=== PATIENT | female | born 1995 | race Caucasian/White ===

== ENCOUNTER 2019-09-24 16:09 | Emergency (ER) | payer OTHER, SELFPAY ==
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
[2019-09-24 16:19] VITALS: BP 121/81; PULSE 100; RESP 20; TEMP 37.3; O2SAT 100
[2019-09-24 16:49] VITALS: BP 120/75; PULSE 81; RESP 16; TEMP 37; O2SAT 99
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
[2019-09-24 20:23] VITALS: BP 118/75; PULSE 78; RESP 16; O2SAT 100
== END 2019-09-24 20:23 | disposition home or self-care (01) ==
PROVIDERS: Emergency Provider Emergency Medicine
DX: S06.0X0A Concussion without loss of consciousness, initial encounter (principal); S61.220A Laceration with foreign body of right index finger without damage to nail, initial encounter; S16.1XXA Strain of muscle, fascia and tendon at neck level, initial encounter; V44.5XXA Car driver injured in collision with heavy transport vehicle or bus in traffic accident, initial encounter
CPT/HCPCS: 12001; 70450; 71046; 72125; 73130; 99284; L0140

== ENCOUNTER 2019-10-08 17:49 | Emergency (ER) | payer OTHER, SELFPAY ==
[2019-10-08 17:57] VITALS: BP 111/67; PULSE 81; RESP 16; TEMP 37; O2SAT 100
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
== END 2019-10-08 18:45 | disposition home or self-care (01) ==
PROVIDERS: Emergency Provider Nurse Practitioner
DX: S61.411D Laceration without foreign body of right hand, subsequent encounter (principal); V99.XXXD Unspecified transport accident, subsequent encounter
CPT/HCPCS: 99211; G0463

== ENCOUNTER 2022-08-23 11:00 | Outpatient (CLI) | payer OTHER, SELFPAY ==
[2022-08-23 11:54] LABS: Basophils Absolute Auto 0.1 K/mm3 (0.0-0.1); Basophils Percent Auto 0.8 % (0.2-1.2); Eosinophils Absolute Auto 0.1 K/mm3 (0-0.3); Eosinophils Percent Auto 1.1 % (0-4.4); Hematocrit 37.7 % (37.0-47.0); Hemoglobin 12.5 g/dL (12.0-15.0); Immature Granulocyte Absolute 0.01 K/mm3 (0.00-0.031); Immature Granulocyte Percent A 0.2 % (0-0.5); Lymphocytes Absolute Auto 2.57 K/mm3 (0.9-3.2); Lymphocytes Percent Auto 38.8 % (18.3-44.2); Mean Corpuscular HGB Conc 33.2 g/dl (32-36); Mean Corpuscular Volume 90.6 fl (80-100); Mean Platelet Volume 9.7 fl (7.4-10.4); Monocytes Absolute Auto 0.5 K/mm3 (0.1-0.6); Monocytes Percent Auto 7.7 % (2.6-8.5); Neutrophils Absolute Auto 3.4 K/mm3 (1.3-6.7); Neutrophils Percent Auto 51.4 % (45.5-73.1); Platelet Count Result 205 k/mm3 (150-375); Red Blood Count 4.16 M/mm3 (4.2-5.4); Red Cell Distribution Width 12.6 % (11.5-14.5); White Blood Count 6.6 K/mm3 (4.5-10.0)
[2022-08-23 12:08] LABS: Alanine Aminotransferase 22 U/L (6-35); Albumin Level 4.6 g/dL (3.5-5.1); Alkaline Phosphatase 60 U/L (38-126); Anion Gap 5 mmol/L (8-16); Aspartate Amino Transferase 29 U/L (14-36); Bilirubin,Total 0.7 mg/dL (0.2-1.3); Blood Urea Nitrogen 9 mg/dL (7-17); Calcium 8.9 mg/dL (8.4-10.2); Carbon Dioxide 30 mmol/L (22-30); Chloride 103 mmol/L (98-107); Cholesterol 160 mg/dL (0-200); Estimated Glomerular Filt Rate > 60; Glucose 101 mg/dL (65-110); HDL Direct 55 mg/dL; Potassium 3.9 mmol/L (3.4-5.0); Sodium 138 mmol/L (137-145); Triglycerides 61 mg/dL (<150)
[2022-08-23 12:20] LABS: LDL Cholesterol Direct 73 mg/dL
[2022-08-23 12:39] LABS: Thyroid Stimulating Hormone 0.498 uIU/mL (0.465-4.680)
[2022-08-23 12:43] LABS: Hemoglobin A1C 5.7 % (<5.7)
[2022-08-23 13:19] LABS: Vitamin D 25 Hydroxy 31.2 ng/mL
== END 2022-08-23 11:01 | disposition home or self-care (01) ==
LOC: ANHLAB 11:00
PROVIDERS: PCP Internal Medicine; Visit Provider Internal Medicine
DX: Z13.6 Encounter for screening for cardiovascular disorders (principal); Z13.1 Encounter for screening for diabetes mellitus; Z13.29 Encounter for screening for other suspected endocrine disorder; Z13.220 Encounter for screening for lipoid disorders; Z13.21 Encounter for screening for nutritional disorder
CPT/HCPCS: 36415; 80053; 80061; 82306; 83036; 84443; 85025

== ENCOUNTER 2022-11-25 11:56 | Emergency (ER) | payer OTHER, SELFPAY ==
[2022-11-25 12:10] VITALS: BP 120/78; PULSE 97; RESP 16; TEMP 37.3; O2SAT 100
--- NOTE | 2022-11-25 12:21 | ED.URI ---
HPI - URI/Sore Throat General Chief Complaint: Upper Respiratory Infection Stated Complaint: sore throat,cough Time Seen by Provider: 11/25/22 12:06 Source: patient Mode of arrival: ambulatory Limitations: no limitations History of Present Illness HPI Narrative: Patient presents today complaining of 4 day history of dry cough with a 3 day history of hoarse voice. Denies fever shortness of breath. No history of asthma. She has been taking Benadryl without relief. Related Data Home Medications Medication Instructions Recorded Confirmed etonogestrel 68 mg subdermal 1 implant subdermal ONCE 11/25/22 11/25/22 implant (Nexplanon) Allergies Allergy/AdvReac Type Severity Reaction Status Date / Time No Known Allergies Allergy Verified 11/25/22 12:10 Review of Systems Review of Systems: CONSTITUTIONAL: Denies body aches, fever, chills, or sweats. EYES: Denies visual changes, redness, or discharge. ENT: Denies rhinorrhea, congestion, sore throat, or otalgia.+hoarse voice CARDIOVASCULAR: Denies chest pain, palpitations, or edema. RESPIRATORY: Denies dyspnea.+cough GASTROINTESTINAL: Denies abdominal pain, nausea, vomiting, or diarrhea. GENITOURINARY: Denies dysuria or hematuria. SKIN: Denies rash, itching, or wounds. MUSCULOSKELETAL: Denies back pain, joint pain, or myalgia. NEUROLOGIC: Denies headache, numbness, tingling, or weakness. PSYCH: Denies depression or anxiety. [facility] Past Medical History Medical History Anxiety Surgical History Surgical History Status post removal of thyroid nodule Family History Family History Mother Anxiety Depression Social History Social History Smoking status: Never smoker Alcohol intake: never Substance use: never Substance use type: does not use Gender identity (if verbalized by the patient): Female Comments At time of signature, I have reviewed and agree with nursing past medical, surgical, social and family history unless otherwise noted. Please see nursing chart for further information. There is no relevant family history pertinent to the presenting complaint Exam Narrative: GENERAL: Well-appearing, well-nourished, and in no acute distress. HEAD: Normocephalic, atraumatic. EYES: EOMI. No redness or drainage. Conjunctivae normal. ENT: Mucous membranes pink and moist. Nares clear. No rhinorrhea. TMs normal bilaterally. Throat normal. Uvula midline. Voice hoarse. NECK: Normal AROM. Supple. No lymphadenopathy. CHEST: No respiratory distress. Clear to auscultation. HEART: Regular rate and rhythm. No murmur appreciated. Normal peripheral pulses. EXTREMITIES: Normal range of motion. No edema. SKIN: Warm, dry, no rash. Capillary refill normal. Normal skin turgor. NEURO: No focal deficits. Alert and oriented x3. Gait steady. PSYCH: Normal affect. No signs of depression or anxiety. Course Course Level of Care: Express Care Visit Vital Signs Vital signs: Vital Signs Temperature 99.2 F 11/25/22 12:10 Pulse Rate 97 11/25/22 12:10 Respiratory Rate 16 11/25/22 12:10 Blood Pressure 120/78 11/25/22 12:10 Pulse Oximetry 100 11/25/22 12:10 Temperature 99.2 F 11/25/22 12:10 Pulse Rate 97 11/25/22 12:10 Respiratory Rate 16 11/25/22 12:10 Blood Pressure 120/78 11/25/22 12:10 Pulse Oximetry 100 11/25/22 12:10 Reviewed MDM - URI/Sore Throat MDM Narrative Medical decision making narrative: Rapid strep negative. Culture pending. Will treat with steroids and tessalon. Anticipatory guidance given. Differential Diagnosis Differential diagnosis: Likely upper respiratory infection, sinusitis, viral infection, bronchitis, pharyngitis and other (Strep throat, laryngitis) Lab Data
== END 2022-11-25 12:35 | disposition home or self-care (01) ==
PROVIDERS: Emergency Provider Nurse Practitioner
DX: J40 Bronchitis, not specified as acute or chronic (principal); J04.0 Acute laryngitis
CPT/HCPCS: 87081; 87880; 99213; G0463

== ENCOUNTER 2023-01-16 10:06 | Outpatient (CLI) | payer OTHER, SELFPAY ==
--- NOTE | 2023-01-16 10:21 | ECG_ITS ---
Measurements Intervals [employer] Rate: 56 P: 43 SC: 155 QRS: 52 QRSD: 112 T: 43 QT: 419 QTc: 407 Interpretive Statements SINUS BRADYCARDIA INCOMPLETE RIGHT BUNDLE BRANCH BLOCK BORDERLINE ECG NO PREVIOUS ECG AVAILABLE FOR COMPARISON Electronically Signed On 01-16-2023 12:10:41 CDT by Dallas Ku D.O.
== END 2023-01-16 10:07 | disposition home or self-care (01) ==
LOC: ANHIMG 10:08
PROVIDERS: PCP Nurse Practitioner Family; Visit Provider Nurse Practitioner Family
DX: R55 Syncope and collapse (principal); I45.10 Unspecified right bundle-branch block
CPT/HCPCS: 93005

== ENCOUNTER 2023-01-23 12:23 | Outpatient (CLI) | payer OTHER, SELFPAY ==
[2023-01-23 12:55] LABS: Basophils Percent Auto 0.5 % (0.2-1.2); Eosinophils Absolute Auto 0.1 K/mm3 (0-0.3); Eosinophils Percent Auto 1.4 % (0-4.4); Hematocrit 39.1 % (37.0-47.0); Hemoglobin 12.5 g/dL (12.0-15.0); Immature Granulocyte Absolute 0.01 K/mm3 (0.00-0.031); Immature Granulocyte Percent A 0.2 % (0-0.5); Immature Platelet Fraction Pct 10.5 % (0.9-11.2); Lymphocytes Absolute Auto 2.53 K/mm3 (0.9-3.2); Lymphocytes Percent Auto 44.8 % (18.3-44.2); Mean Corpuscular Hemoglobin 29.6 pg (26-34); Mean Corpuscular Volume 92.4 fl (80-100); Monocytes Absolute Auto 0.4 K/mm3 (0.1-0.6); Monocytes Percent Auto 6.9 % (2.6-8.5); Neutrophils Absolute Auto 2.6 K/mm3 (1.3-6.7); Neutrophils Percent Auto 46.2 % (45.5-73.1); Platelet Count Result 123 k/mm3 (150-375); Red Blood Count 4.23 M/mm3 (4.2-5.4); Red Cell Distribution Width 13.3 % (11.5-14.5); White Blood Count 5.7 K/mm3 (4.5-10.0)
[2023-01-23 13:22] LABS: Burr Cells 1+ (NORMAL); Schistocytes None Seen (NORMAL)
[2023-01-23 13:23] LABS: Platelet Clumps Present; Platelet Estimate Adequate (Adequate)
[2023-01-23 13:58] LABS: Alanine Aminotransferase 35 U/L (6-35); Albumin Level 4.6 g/dL (3.5-5.1); Alkaline Phosphatase 49 U/L (38-126); Anion Gap 8 mmol/L (8-16); Aspartate Amino Transferase 30 U/L (14-36); Bilirubin,Total 0.9 mg/dL (0.2-1.3); Blood Urea Nitrogen 11 mg/dL (7-17); Calcium 8.7 mg/dL (8.4-10.2); Carbon Dioxide 24 mmol/L (22-30); Chloride 106 mmol/L (98-107); Estimated Glomerular Filt Rate > 60; Glucose 93 mg/dL (65-110); Potassium 4.1 mmol/L (3.4-5.0); Sodium 138 mmol/L (137-145)
== END 2023-01-23 12:24 | disposition home or self-care (01) ==
LOC: ANHLAB 12:25
PROVIDERS: PCP Nurse Practitioner Family; Visit Provider Nurse Practitioner Family
DX: R55 Syncope and collapse (principal)
CPT/HCPCS: 36415; 80053; 85025; 85055

== ENCOUNTER 2023-01-31 12:46 | Outpatient (CLI) | payer OTHER, SELFPAY ==
--- NOTE | 2023-02-07 16:07 | WPDHOLTEREM ---
Holter/Event Monitor Holter/Event Monitor Date of procedure: 01/31/23 Holter/Event Procedure: 48 Hr Holter Monitor Indications: Syncope Conclusion: 1. 48 hour holter monitor on 01/31/23. 2. Underlying rhythm is sinus rhythm. HR range 40-156 bpm; average HR 76 bpm. HR at 40 bpm was at 04:25; HR at 156 bpm was at 19:46. 3. No premature supraventricular complexes. No supraventricular tachycardia. 4. There are 3 premature ventricular complexes. No ventricular tachycardia. 5. No sinoatrial or atrioventricular blocks. No significant pauses greater than 2 seconds. 6. No symptoms available for correlation.
== END 2023-01-31 12:47 | disposition home or self-care (01) ==
LOC: ANHCARD 12:47
PROVIDERS: PCP Nurse Practitioner Family; Visit Provider Nurse Practitioner Family
DX: R55 Syncope and collapse (principal)
CPT/HCPCS: 93225; 93226

== ENCOUNTER 2023-09-10 10:26 | Outpatient (CLI) | payer OTHER, SELFPAY ==
--- NOTE | 2023-09-10 10:41 | EST_ITS ---
Patient Info Name: Kris Silva Age: 28 years : 1995 Gender: Female Ht: 67 in Wt: 145 lbs BSA: 1.77 m2 HR: 74 bpm BP: 106 / 66 mmHg Exam Date: 09/10/2023 10:52 AM Exam Location: Echo Lab Patient Status: Outpatient Admit Date: 09/10/2023 Staff Ordering Physician: Katlyn Marquez APRN Attending Provider: aKtlyn Marquez APRN Exercise Technologist: Steff Copeland JOHNNY Exercise Physician: Dallas Ku DO Exam Type: CA stress test treadmill Study Info A treadmill exercise stress test was performed. Summary 1. 1. Negative Grant exercise stress test for ischemic ST changes by ECG criteria. 2. 2. Good functional capacity, achieving 10 METs of workload. 3. 3. Appropriate HR response to exercise. 4. 4. Appropriate HR recovery at 1 minute post exercise. 5. 5. No imaging with stress testing. 6. 6. Patient informed of the above results. Protocol: Grant Stress ECG Details Stage: REST Duration (min): 0 min : 56 sec Speed (mph): 0.0 Grade (%): 0 HR (bpm): 80 SBP (mmHg): 106 DBP (mmHg): 66 METS: --- Stage: REST Duration (min): 5 min : 4 sec Speed (mph): 0.0 Grade (%): 0 HR (bpm): 83 SBP (mmHg): 106 DBP (mmHg): 66 METS: --- Stage: STAGE 1 Duration (min): 1 min : 0 sec Speed (mph): 1.7 Grade (%): 10 HR (bpm): 119 SBP (mmHg): 106 DBP (mmHg): 66 METS: --- Stage: STAGE 1 Duration (min): 2 min : 0 sec Speed (mph): 1.7 Grade (%): 10 HR (bpm): 124 SBP (mmHg): 106 DBP (mmHg): 66 METS: --- Stage: STAGE 1 Duration (min): 3 min : 0 sec Speed (mph): 1.7 Grade (%): 10 HR (bpm): 121 SBP (mmHg): 117 DBP (mmHg): 66 METS: --- Stage: STAGE 2 Duration (min): 1 min : 0 sec Speed (mph): 2.5 Grade (%): 12 HR (bpm): 133 SBP (mmHg): 117 DBP (mmHg): 66 METS: --- Stage: STAGE 2 Duration (min): 2 min : 0 sec Speed (mph): 2.5 Grade (%): 12 HR (bpm): 145 SBP (mmHg): 121 DBP (mmHg): 62 METS: --- Stage: STAGE 2 Duration (min): 3 min : 0 sec Speed (mph): 2.5 Grade (%): 12 HR (bpm): 148 SBP (mmHg): 121 DBP (mmHg): 62 METS: --- Stage: STAGE 3 Duration (min): 1 min : 0 sec Speed (mph): 3.4 Grade (%): 14 HR (bpm): 158 SBP (mmHg): 165 DBP (mmHg): 67 METS: --- Stage: STAGE 3 Duration (min): 2 min : 0 sec Speed (mph): 3.4 Grade (%): 14 HR (bpm): 163 SBP (mmHg): 165 DBP (mmHg): 67 METS: --- Stage: STAGE 3 Duration (min): 3 min : 0 sec Speed (mph): 3.4 Grade (%): 14 HR (bpm): 166 SBP (mmHg): 169 DBP (mmHg): 62 METS: --- Stage: RECOVERY Duration (min): 0 min : 59 sec Speed (mph): 0.0 Grade (%): 0 HR (bpm): 132 SBP (mmHg): 169 DBP (mmHg): 62 METS: --- Stage: RECOVERY Duration (min): 1 min : 59 sec Speed (mph): 0.0 Grade (%): 0 HR (bpm): 115 SBP (mmHg): 169 DBP (mmHg): 62 METS: --- Stage: RECOVERY
== END 2023-09-10 10:27 | disposition home or self-care (01) ==
LOC: ANHCARD 10:27
PROVIDERS: PCP Nurse Practitioner Family; Visit Provider Nurse Practitioner Family
DX: R07.9 Chest pain, unspecified (principal)
CPT/HCPCS: 93017

== ENCOUNTER 2025-01-13 20:18 | Emergency (ER) | payer OTHER, SELFPAY ==
--- NOTE | ~2025-01-13 | XR_ITS ---
XR hand LT min 3V Ordering provider: Lui Spence MD History: . left thumb injury/dog bites . Comparison: None. FINDINGS: BONES: No acute fracture or dislocation. JOINT SPACES: Well maintained. SOFT TISSUES: Unremarkable. IMPRESSION: No acute osseous abnormality left hand. Reviewed, dictated and finalized at location A.
--- OUTSIDE RECORDS SUMMARY | 2025-01-13 20:20 | XMS_ITS | Clinical Summary ---
Author Organization [facility] Care Team Providers Care Automotive Services Manager Name Role Phone Unavailable Primary Care Provider Unavailabl e Social History Tobacco Use Types Packs/Day Years Used Date Smoking Tobacco: Never Assessed Comments Unknown Sex and Gender Information Value Date Recorded Sex Assigned at Not on file Legal Sex Female 8:09 AM CDT Gender Identity Not on file Sexual Orientation Not on file Plan of Treatment Health Maintenance Due Date Last Done Comments Hepatitis C Virus (HCV) Screening 1995 TdaP Immunization 1995 Human Papillomavirus (HPV) Immunization (1 - 3-dose series) 2012 Hepatitis B Immunization (1 of 3 - 19+ 3-dose series) 2016 Pap Smear 2018 Influenza Immunization (#1) 2024 SARS-COV-2 Immunization ( season) 2024 Respiratory Syncytial Virus (RSV) Immunization (Adult) (1 - 1-dose 75+ series) 2072 Meningococcal Immunization (ACWY) Aged Out No longer eligible based on patient's age to complete this topic Pneumococcal Immunization Combined Aged Out No longer eligible based on patient's age to complete this topic Rotavirus Immunization Aged Out No lo nger eligible based on patient's age to complete this topic
[2025-01-13 20:23] VITALS: BP 113/75; PULSE 88; RESP 18; TEMP 37.2; O2SAT 100
--- NOTE | 2025-01-13 20:31 | PC.NURSE ---
Pt presents to ED due to dog bite to (L) thumb yesterday, now feeling numbness to finger going up arm.
--- NOTE | 2025-01-13 20:36 | ED.ANIMALBIT ---
HPI - Animal Bite General Chief Complaint: Animal Bite Stated Complaint: dog bit left thumb-hand numbness Time Seen by Provider: 01/13/25 20:27 History of Present Illness HPI narrative: 29-year-old otherwise healthy female presenting to the emergency department after a dog bit her left thumb. This occurred about 1:00 p.m yesterday. Patient states that it was her own domesticated dog was up-to-date on vaccinations and she was trying to break up a fight between other dog. She got bit several times on her left thumb. Has been trying some salve cream on top of it but knows that she was having some paresthesias in her thumb as well as some minor swelling so she came to the ER for evaluation. No recent antibiotics. She is not sure for tetanus is up-to-date. Able to range the thumb but having some pain and subjective pins and needle sensations in her dorsal aspect left thumb. No bleeding or significant lacerations noted. Dog was a small breed max. Related Data Home Medications ?Medication ?Instructions ?Recorded ?Confirmed ?Last Taken ?Type etonogestrel 68 mg subdermal 1 implant subdermal ONCE 11/25/22 08/08/23 Unknown History implant (Nexplanon) valacyclovir 500 mg tablet 500 mg PO DAILY PRN 08/08/23 08/08/23 Unknown History Allergies Allergy/AdvReac Type Severity Reaction Status Date / Time No Known Allergies Allergy Verified 01/13/25 20:19 Review of Systems Review of Systems: As reviewed above in HPI [facility] Past Medical History Medical History HSV (herpes simplex virus) infection Near syncope Anxiety with depression Anxiety Surgical History Surgical History Status post removal of thyroid nodule Family History Family History Mother Anxiety Depression Social History Social History Smoking status: Never smoker Alcohol intake: never Substance use: never Substance use type: does not use Lack of Transportation: No Lack of Food: Never True Current Housing: I Have Housing Concerned About Future Housing: No Difficulty Paying Gas/Electric Bills: No Difficulty Paying for Meds: No Currently Unemployed: No Education: High School Diploma/GED Difficulty w/ Childcare or Family Care: No Gender identity (if verbalized by the patient): Female Exam Narrative: GENERAL: [Well-appearing, well-nourished, and in no acute distress.] HEAD: [Normocephalic, atraumatic.] EYES: [PERRLA and EOMI.] ENT: Nares clear, no rhinorrhea or epistaxis. Mucous membranes moist. NECK: Supple. CHEST: [Clear to auscultation. No respiratory distress.] HEART: [Regular rate and rhythm]. No murmur heard. [Normal peripheral pulses.] ABDOMEN: [Soft, nondistended], [nontender], [No rigidity or guarding] EXTREMITIES: Numerous small punctate bites in left thumb around the sides around the nail, no nail bed injury. Good range of motion at the interphalangeal joint and metacarpophalangeal joint. No bleeding. No significant lacerations. Able to oppose each digit and make a thumbs up and okay sign. Good range of motion of the wrist. No appreciable swelling. No circumferential swelling, no tenderness with passive flexion or extension, no tenderness with percussion of the flexor surface. SKIN: Warm, dry, no rash. NEURO: [No focal deficits]. Alert and oriented [x3.] PSYCH: [Normal mood and affect.] Course Vital Signs Vital signs: Vital Signs Temperature 37.2 C 01/13/25 20:23 Pulse Rate 88 01/13/25 20:23 Respiratory Rate 18 01/13/25 20:23 Blood Pressure 113/75 01/13/25 20:23 Pulse Oximetry 100 01/13/25 20:23 Temperature 37.2 C 01/13/25 20:23 Pulse Rate 88 01/13/25 20:23 Respiratory Rate 18 01/13/25 20:23 Blood Pressure 113/75 01/13/25 20:23 Pulse Oximetry 100 01/13/25 20:23 MDM - Animal Bite MDM Narrative Medical decision making narrative: 29-year-old female presenting after a dog bit her left thumb at about 1:00 p.m. yesterday. Dog was domesticated and up-to-date on vaccinations and rabies. Numerous small punctate bites in left thumb around the sides around the nail, no nail bed injury. Good range of motion at the interphalangeal joint and metacarpophalangeal joint. No bleeding. No significant lacerations. Able to oppose each digit and make a thumbs up and okay sign. Good range of motion of the wrist. No appreciable swelling. No circumferential swelling, no tenderness with passive flexion or extension, no tenderness with percussion of the flexor surface. Subjective paresthesias at the palmar surface left thumb near the wounds. Patient's tetanus will be updated here and she was given Augmentin for her wounds. No lacerations requiring any suture at this time. X-rays were obtained to rule out any osseous abnormality or retained foreign body. Patient has no signs or symptoms of any suspicious infectious process at this time but with the dog bite injury she will be given very strict return precautions, antibiotic prescription, and signs to watch out for and she verbalized understanding. Patient's and x-rays were unremarkable for any acute osseous process or retained foreign body she will be sent home with a prescription for Augmentin. Patient given return precautions and safely discharged. Medical Records Attestation: I reviewed the patient's medical records. Imaging Data Attestation: I personally reviewed and interpreted this imaging study as follows: My impression: No retained foreign body or acute osseous process Radiologist's impression: Impressions Hand X-Ray 01/13/25 21:30 IMPRESSION: No acute osseous abnormality left hand. Discharge Plan Discharge Clinical Impression: Dog bite of left thumb Patient Disposition: Home Condition: Stable Instructions: Antibiotic Form, Animal Bite (ED) Additional Instructions: Your x-rays were negative for any abnormality. We will send you home with a course of Augmentin which will treat any infection from the dog bite. If you notice any worsening swelling or pain, purulent drainage, inability to move the thumb, fevers, chills or any other concerning symptoms please return to the ER for evaluation otherwise follow-up with regular doctor outpatient. You can take Tylenol and ibuprofen for any aches or pains in addition to the prescribed antibiotic. Patient Language: Hungarian Prescriptions: New amoxicillin-pot clavulanate 875-125 mg tablet 1 tablet PO Q12H 7 Days Qty: 14 0RF No Action Nexplanon 68 mg Implant 1 implant SUBDERMAL ONCE Rx Instructions: as a single dose hydroxyzine HCl 25 mg tablet 50 mg PO TID PRN (Reason: anxiety) Qty: 90 0RF Rx Instructions: 1-2 tablets as needed for an anxiety valacyclovir 500 mg tablet 500 mg PO DAILY PRN azithromycin 250 mg tablet See Rx Instructions PO .COMPLEX Qty: 6 0RF Rx Instructions: For 250 mg dose pack: take 500 mg today (day 1), then 250 mg for 4 days (days 2-5) PO Mucinex DM 30-600 mg tablet extended release 12 hr See Rx Instructions PO Q12H PRN (Reason: cough) Qty: 30 0RF Rx Instructions: 1-2 tablest orally every 12 hours PRN; prednisone 20 mg tablet 40 mg PO DAILY Qty: 10 0RF Follow-up/Referrals: Katlyn Marquez APRN [Primary Care Provider] - Time of Disposition: 21:34
--- NOTE | 2025-01-13 20:41 | PC.NURSE ---
Pt taken to imaging in W/C
[2025-01-13] MEDS: TETANUS,DIPHTHERIA,AC PERTUSSIS ADULT (0.5 ML) BOOSTRIX IM (20:45)
[2025-01-13] MEDS: AMOXICILLIN/CLAVULANATE K 875-125 MG TAB 1 TABLET PO (20:45)
--- OUTSIDE RECORDS SUMMARY | 2025-01-13 20:58 | XMS_ITS | Clinical Summary ---
Author Organization [facility] Care Team Providers Care Propellant Charge Zone Assembler Name Role Phone Unavailable Primary Care Provider [...]
--- NOTE | 2025-01-13 21:47 | PC.NURSE ---
L thumb irrigated, abx ointment applied and wrapped.
== END 2025-01-13 21:52 | disposition home or self-care (01) ==
PROVIDERS: Emergency Provider Student in an Organized Health Care Education/Training Program; PCP Nurse Practitioner Family
DX: S61.052A Open bite of left thumb without damage to nail, initial encounter (principal); Z23 Encounter for immunization; F41.8 Other specified anxiety disorders; W54.0XXA Bitten by dog, initial encounter
CPT/HCPCS: 73130; 90471; 90715; 99283; A9270

== ENCOUNTER 2025-04-21 00:53 | Day surgery (SDC) | payer OTHER, SELFPAY ==
[2025-04-16 13:56] VITALS: BMI 19.0
--- NOTE | 2025-04-16 14:03 | PC.NURSE ---
Report to the Outpatient Waiting Room, entrance under the green pavilion located off [facility], at time _1000_ on date _04/21/25_. Planned Procedure Time: _1200_.? Time changes happen often and if your time is changed the preop area will call you the afternoon before. - You and your visitor will be asked to self-screen and do not enter if you have any COVID symptoms. Please call surgeon if you need to reschedule. - A mask is optional within the hospital at this time. Patients may have clear liquids (water, carbonated beverages, clear teas, apple juice) until 3 hours prior to surgery with a maximum of 20 ounces. - No food from midnight until time of surgery and no smoking, or chewing tobacco (or any form of nicotine). No chewing gum, candy or mints. - Infants may have breast milk until 4 hours before surgery, formula 6 hours prior to surgery. - Children will be allowed to drink immediately following surgery.? If applicable, please bring a bottle or sippy cup to assist with drinking. Juice, water, soda, and popsicles are readily available.? For infants on formula, please bring formula the day of surgery.? Pacifiers are allowed. Take only the following medications with a SIP of water on the morning of surgery: ____HYDROXIZINE DO NOT STOP ANY OF YOUR OTHER PRESCRIPTION MEDICATIONS PRIOR TO SURGERY EXCEPT THE FOLLOWING Hold all vitamins and supplements for 3 days per anesthesiologist. Medications to discontinue per physician Date to take last dose Please no make-up, nail portuguese, hairspray, perfume, deodorant, or body powder the day of surgery.? No jewelry (including any body piercings) or valuables the day of surgery, leave them at home.? Please take a shower or bath the night before, or the morning of, surgery with an antibacterial soap.? Wear comfortable, loose fitting clothing.? Children are encouraged to wear pajamas. - Jewelry must be removed prior to entering the operating room.? Rings and piercings that are not removed may be cut off. - The hospital will not accept responsibility for valuables.? - Please leave all valuables, including medications, at home the day of surgery. If you are going home after surgery, a licensed driver license examiner must drive you home.? - NO public transportation without another adult if you receive anesthesia. - We recommend that an adult stay with you for 24 hours following discharge. - We also recommend that you do not drive, make important decision, drink alcoholic beverages, or take any drugs that were not prescribed by your health care provider for at least 24 hours after your discharge time. For Pediatric surgeries, we recommend two adults accompany the child home. Follow any additional instructions given to you from your surgeon. Telephone instructions given to PATIENT__and asked if any additional questions and then verbalized understanding. Patient advised to call surgeon office or pre surgery nurse liaison [phone] if any additional questions.
[2025-04-21] VITALS (8 sets, daily range): BP systolic 84–105; BP diastolic 47–64; PULSE 41–74; RESP 10–16; TEMP 36–36.8; O2SAT 99–100
--- OUTSIDE RECORDS SUMMARY | 2025-04-21 00:56 | XMS_ITS | Clinical Summary ---
Author Organization [facility] Care Team Providers Care Student Support Counselor Name Role Phone Unavailable Primary Care Provider [...] Virus (HCV) Screening 1997 TdaP Immunization 1997 Hepatitis B Immunization (1 of 3 - 19+ 3-dose series) 2016 SARS-COV-2 Immunization ( - 2023- season) 2024 Human Papillomavirus (HPV) Immunization (1 - 3-dose SCDM series) 2024 Influenza Immunization (#1) 2025 Respiratory Syncytial Virus (RSV) Immunization (Adult) (1 [...]
--- NOTE | 2025-04-21 08:58 | PM.IMHP ---
H&P: HPI History of Present Illness Date/Time: 04/21/25 08:58 Chief Complaint: Sterilization Narrative: 29 y/o who desires permanent sterilization. She has been using Nexplanon. She does not desire future childbearing. Review of Systems Review of Systems: All systems reviewed & are unremarkable except as noted in HPI and below PMFSH Past Medical History Medical History HSV (herpes simplex virus) infection Near syncope Anxiety with depression Anxiety Surgical History Surgical History Status post removal of thyroid nodule Family History Family History Mother Anxiety Depression Social History Social History Smoking status: Never smoker Alcohol intake: never Substance use: never Substance use type: does not use Lack of Transportation: No Lack of Food: Never True Current Housing: I Have Housing Concerned About Future Housing: No Difficulty Paying Gas/Electric Bills: No Difficulty Paying for Meds: No Currently Unemployed: No Education: High School Diploma/GED Difficulty w/ Childcare or Family Care: No Gender identity (if verbalized by the patient): Female Meds Home Medications and Allergies Home Medications ?Medication ?Instructions ?Recorded ?Confirmed ?Type etonogestrel 68 mg subdermal 1 implant subdermal ONCE 11/25/22 04/16/25 History implant (Nexplanon) hydroxyzine HCl 25 mg tablet 50 mg (2 x 25 mg) PO TID PRN 05/01/23 04/16/25 Rx anxiety #90 tabs valacyclovir 500 mg tablet 500 mg PO DAILY PRN LESIONS 04/16/25 04/16/25 History OUTBREAK Allergies Allergy/AdvReac Type Severity Reaction Status Date / Time No Known Allergies Allergy Verified 04/16/25 13:54 Exam Const: Orientation/consciousness: patient oriented x3 Other: Well-developed, well-nourished female in no acute distress. Neck: Thyroid: thyroid normal Lymphatic: no lymphadenopathy noted (in neck, axilla or inguinal nodes) Resp: Effort & Inspection: normal respiratory effort Auscultation: clear to auscultation bilaterally Cardio: Rate: regular rate Rhythm: regular rhythm Heart sounds: S1 normal heart sound present and S2 normal heart sound present GI: Other: ABD: Soft, nontender, nondistended. No guarding or rebound tenderness. No hepatosplenomegaly. : General: Yes no CVA tenderness Other: External genitalia: normal female hair distribution, without lesion. Urethral meatus: no lesion, non prolapsed. Bladder: no mass, nontender Vagina: well-estrogenized, without lesion or discharge. No cystocele or rectocele. Cervix: no lesion or discharge. Uterus: small, anteverted, freely mobile, nontender Adnexa: no mass or tenderness. Anus/perineum: no lesions, nontender Back/Spine/Pelvis: Back: no CVA tenderness Skin: General skin exam: normal color and no rashes or lesions noted Neuro: General: patient oriented x3 Extrem: Other: Extremities: nontender with no edema Psych: Mental Status: mental status grossly normal Affect: normal affect Assessment and Plan Assessment and plan (1) Unwanted fertility: Code(s): Z30.09 - Encounter for other general counseling and advice on contraception Status: Acute Assessment and Plan: A: Desired sterility. P: She understands there are temporary methods of contraception available to her. She understands that there are nonsurgical options as well as surgical options. She understands that tubal sterilization will render her permanently sterile. She understands that there is a failure rate associated with tubal ligation, as well as an inherent ectopic gestation risk. Furthermore, she understands risks of surgery to include risks of anesthesia, risks of pain, infection, bleeding, blood products, thromboembolic phenomena and damage to adjacent structures such as bowel, bladder, ureters, blood vessels and nerves. She understands all these risks and elects to proceed with laparoscopic bilateral salpingectomies.
--- NOTE | 2025-04-21 09:37 | WPDHPUPDATE1 ---
History and Physical Update Update Date/Time: 04/21/25 09:37 History and Physical has been reviewed, including an updated exam of the patient. There are NO changes in the patient's condition. Risks, benefits, and alternatives have been discussed and questions answered. Patient agrees to proceed with procedure.
[2025-04-21] MEDS: ACETAMINOPHEN 500 MG TABLET 1000 MG PO (09:40)
--- NOTE | 2025-04-21 09:45 | WPDANESEPPF ---
Anes - Initial Pre Proc Eval Procedure: Operation Date: 04/21/25 10:00 Proposed Procedures p Laparoscopic Bilateral Salpingectomy - Leonel Cruz MD Date/Time: 04/21/25 09:45 Surgeon: Leonel Cruz MD Pre Op Diagnosis: Desires Sterilization Patient Data Age: 29 Gender: F Height: 1.7 m Weight: 55 kg Allergies Allergy/AdvReac Type Severity Reaction Status Date / Time No Known Allergies Allergy Verified 04/16/25 13:54 Home Medications ?Medication ?Instructions ?Recorded ?Confirmed ?Type etonogestrel 68 mg subdermal 1 implant subdermal ONCE 11/25/22 04/16/25 History implant (Nexplanon) hydroxyzine HCl 25 mg tablet 50 mg (2 x 25 mg) PO TID PRN 05/01/23 04/16/25 Rx anxiety #90 tabs valacyclovir 500 mg tablet 500 mg PO DAILY PRN LESIONS 04/16/25 04/16/25 History OUTBREAK Patient hx anesthesia problems: none Family hx anesthesia problems: none Results Review: All pre-operative results and documents have been reviewed as part of the pre-operative evaluation. [facility] Past Medical History Medical History HSV (herpes simplex virus) infection Near syncope Anxiety with depression Anxiety Surgical History Surgical History Status post removal of thyroid nodule Family History Family History Mother Anxiety Depression Social History Social History Smoking status: Never smoker Alcohol intake: never Substance use: never Substance use type: does not use Lack of Transportation: No Lack of Food: Never True Current Housing: I Have Housing Concerned About Future Housing: No Difficulty Paying Gas/Electric Bills: No Difficulty Paying for Meds: No Currently Unemployed: No Education: High School Diploma/GED Difficulty w/ Childcare or Family Care: No Gender identity (if verbalized by the patient): Female Anes - Eval Final PreProcedure Day of Procedure 04/21/25 09:45 Patient weight: normal Heart: regular rate and rhythm Lungs: clear to auscultation Airway: Mallampati scale class II Neurological: alert and oriented Last oral intake: >/= 8 hours ASA classification: II Emergent: no Anesthetic plan: proceed Anesthesia type and monitoring: general ETT and standard monitoring Results Review: All pre-operative results and documents have been reviewed as part of the pre-operative evaluation. Informed Consent: The patient's anesthetic plan and its attendant risks and benefits were discussed with the patient/family/POA. Questions were solicited and answers provided to the satisfaction of the patient/family/POA.
[2025-04-21] MEDS: LACTATED RINGERS 1,000 ML 30 ML IV CONT ×2 (09:50→10:56)
[2025-04-21] MEDS: KETOROLAC 15 MG/ML VIAL (*BKC) IV PUSH (09:56)
[2025-04-21 10:10] LABS: BEDSIDEPREGUCG Negative (Negative)
--- NOTE | 2025-04-21 10:34 | S_PTH ---
PATIENT: Kris Silva LOC: [facility] U#:[id number] AGE/SX: 29/F ROOM: RE04/21/[address]: Leonel Cruz MD : 1995 BED: DIS: 04/21/2025 SPEC #: [id number] RECD: 04/21/25 10:50 STATUS: LAVON REQ #: [id number] IVAN: 04/21/25 10:[address]: Leonel Cruz DEPT: [facility] Surgical RECD BY: Mat Zamorano ENTERED: 04/21/25 10:50 SP TYPE: Surgical OTHR DR: Katlyn Marquez APRN Tissues: A - Fallopian Tube Bilateral Procedures: Gross and Microscopic Level 2 Hematoxylin and Eosin Stain
--- NOTE | 2025-04-21 10:47 | W.PM.PROC2 ---
Procedure Note - Detailed Date of Procedure 04/21/25 Pre-op Diagnosis Desires Sterilization Post-op Diagnosis Same Procedure Performed Laparoscopic bilateral salpingectomies Surgeon Leonel Cruz MD Anesthesia General Findings Normal-appearing liver and gallbladder. Normal-appearing uterus, tubes and ovaries. Normal-appearing anterior and posterior cul de sac, bilateral round and uterosacral ligaments. Description of Procedure The patient was taken to the operating room where general endotracheal anesthesia was administered. She was prepared and draped in the usual sterile fashion in dorsal lithotomy position. The bladder was drained with a red rubber catheter. A sterile speculum was placed into the vagina. The anterior lip of the cervix was grasped with a single-tooth tenaculum. The acorn uterine manipulator was placed. The speculum was withdrawn. Gloves were changed and attention was turned the abdomen. An infraumbilical skin incision was made with a scalpel. The abdomen was tented and a 5mm bladeless trocar was advanced under direct laparoscopic visualization. Pneumoperitoneum was administered using carbon dioxide gas. A survey of the pelvis and abdomen revealed the findings noted above. Additional 5 mm incisions were made in the right and left lower quadrants, and 5 mm ports were advanced using bladeless trocars under direct laparoscopic visualization. The Fallopian tube on the right side was grasped and elevated and dissected off the ovary using the Ligasure. The tube was then amputated from the uterus and passed off to be sent to pathology. The left tube was similarly dissected free and excised. Hemostasis was excellent. The ports were withdrawn. The gas was allowed to escape. The skin incisions were reapproximated using interrupted subcuticular sutures of 4 0 Vicryl. Dermaflex was applied externally. The vaginal instrumentation was withdrawn and hemostasis was excellent here as well. Sponge, lap, needle and instrument counts were correct. The patient was awakened and taken to recovery room in stable condition. I was present and scrubbed through the entire procedure. Implants None Estimated Blood Loss 5 Drains No Packing No Pathology Yes (Bilateral Fallopian tubes) Complications None Condition Stable Disposition PACU [facility] Billing Surgery - Charge Forward: Surgery Billing
[2025-04-21] MEDS: KETOROLAC 30 MG/ML VIAL (*BKC) IV PUSH (10:49)
[2025-04-21] MEDS: oxyCODONE HCL (*CRX) 5 MG TAB IR PO (11:55)
== END 2025-04-21 12:58 | disposition home or self-care (01) ==
PROVIDERS: PCP Nurse Practitioner Family; Visit Provider Obstetrics & Gynecology
PROC: (CPT 49320; principal; 2025-04-21 10:00)
DX: Z30.2 Encounter for sterilization (principal)
CPT/HCPCS: 58661; 88302; A9270; J1885; J2003; J2250; J2405; J2704; J3010; J7120